=== PATIENT | male | born 1990 | race Caucasian/White ===

== ENCOUNTER 2017-07-06 09:13 | Inpatient (IN) | payer OTHER ==
[2017-07-06 09:55] VITALS: BMI 25.0
--- NOTE | 2017-07-06 12:50 | HP ---
COWS - Scale Resting Pulse: 0= [place] 80 or Below Sweatin= Chills/Flushing Restless Observation: 1= Difficult to Sit Still Pupil Size: 0= Normal to Room Light Bone or Joint Aches: 2= Severe Diffuse Aches Runny Nose/ Eye Tearin= Runny Nose/Eyes GI Upset > 30mins: 3= Vomiting/Diarrhea Tremor Observation: 1= Tremor [place], Not Seen Yawning Observation: 1= 1-2x During Session Anxiety or Irritability: 2=Irritable/Anxious Goose Flesh Skin: 3=Piloerection COWS Score: 16 Admission ROS S - HPI Chief Complaint: "The New Year is coming up and I want to start a new life. I want to do this for myself and for my family." Patient is here to Detox from Heroin. Allergies/Adverse Reactions: Allergies Allergy/AdvReac Type Severity Reaction Status Date / Time No Known Allergies Allergy Verified 07/06/17 10:01 History of Present Illness: Patient is a 27 YO male here to detox from Heroin. This is patient's first detox admission at [facility]. Patient has attended outpatient day programs at [facility] ([place] Longest period of non-drug use: approx. 2 years (2014 - 2016). Exam Limitations: No Limitations - Ebola screening Have you traveled outside of the country in the last 21 days: No (N) Have you had contact with anyone from an Ebola affected area: No Have you been sick,other than usual withdrawal symptoms: No Do you have a fever: No - Review of Systems Constitutional: Chills, Diaphoresis, Fever, Malaise, Night Sweats, Changes in sleep EENT: reports: Blurred Vision, Nose Congestion, Sinus Pressure Respiratory: reports: SOB with Exertion, Productive cough Cardiac: reports: No Symptoms Reported GI: reports: Diarrhea, Nausea, Vomiting, Indigestion ([place].) : reports: No Symptoms Reported Musculoskeletal: reports: Back Pain Integumentary: reports: No Symptoms Reported Neuro: reports: Headache, Numbness (Fingertips of Bilateral Hands.), Tingling ( Fingertips of Bilateral Hands), Tremors Endocrine: reports: No Symptoms Reported Hematology: reports: No Symptoms Reported Psychiatric: reports: Judgement Intact, Mood/Affect Appropiate, Orientated x3, Anxious Other Systems: Reviewed and Negative Patient History - Patient Medical History Hx Anemia: No Hx Asthma: No Hx Chronic Obstructive Pulmonary Disease (COPD): No Hx Cancer: No Hx Cardiac Disorders: No Hx Congestive Heart Failure: No Hx Hypertension: No Hx Hypercholesterolemia: No Hx Pacemaker: No HX Cerebrovascular Accident: No Hx Seizures: No Hx Diabetes: No Hx Gastrointestinal Disorders: No Hx Liver Disease: No Hx Genitourinary Disorders: No Hx Sexually Transmitted Disorders: No Hx Renal Disease (ESRD): No Hx Thyroid Disease: No Hx Human Immunodeficiency Virus (HIV): No (Last Tested: approx. 1 Year ago: NEGATIVE.) Hx Hepatitis C: No (Never Tested.) Hx Depression: No (Only when Detoxing.) Hx Suicide Attempt: No (PATIENT DENIES CURRENT SI / HI.) Hx Bipolar Disorder: No Hx Schizophrenia: No Other Medical History: Dislocated shoulders (Bilateral). - Patient Surgical History Past Surgical History: Yes Hx Neurologic Surgery: No Hx Cataract Extraction: No Hx Cardiac Surgery: No Hx Lung Surgery: No Hx Breast Surgery: No Hx Breast Biopsy: No Hx Abdominal Surgery: No Hx Appendectomy: No Hx Cholecystectomy: No Hx Genitourinary Surgery: No Hx Section: No Hx Orthopedic Surgery: Yes (dislocation, right shoulder in 2009 and 2010) Other Surgical History: Nasal (Repair of Deviated Septum): 2012. Anesthesia Reaction: No - PPD History Previous Implant?: Yes Documented Results: Negative w/o proof Implanted On Prior [facility] Admission?: No PPD to be Administered?: Yes - Reproductive History Patient is a Female of Child Bearing Age (11 -55 yrs old): No (PATIENT IS MALE.) - Smoking Cessation Smoking history: Current every day smoker Have you smoked in the past 12 months: Yes Aproximately how many cigarettes per day: 10 Cigars Per Day: 0 Hx Chewing Tobacco Use: No Initiated information on smoking cessation: Yes 'Breaking Loose' booklet given: 07/06/17 (GIVE ON UNIT.) - Substance & Tx. History Hx Alcohol Use: No Hx Substance Use: Yes Substance Use Type: Heroin, Marijuana Hx Substance Use Treatment: Yes (Previous Day Programs at [facility], [place] - Substances Abused Heroin Route: Inhalation Frequency: Daily Amount used: 2-3 bags Age of first use: 23 Date of Last Use: 07/06/17 MarijuanA Route: Smoking Frequency: 1-2 times per week Amount used: $10 Age of first use: 17 Date of Last Use: 07/05/17 Family Disease History - Family Disease History Family Disease History: Diabetes: Mother (HTN, Hypercholesteremia.), Heart Disease: Mother Admission Physical Exam [facility] - Vital Signs Vital Signs: Vital Signs - 24 hr 07/06/17 09:33 Temperature 97.3 F L Pulse Rate 68 Respiratory 18 Rate Blood Pressure 125/71 - Physical General Appearance: Yes: No Apparent Distress, Nourished, Appropriately Dressed , Tremorous, Anxious HEENTM: Yes: Hearing grossly Normal, Normocephalic, Normal Voice, SHADI, Pharynx Normal Respiratory: Yes: Chest Non-Tender, Lungs Clear, No Respiratory Distress, No Accessory Muscle Use Neck: Yes: No masses,lesions,Nodules, Supple, Trachea in good position Breast: Yes: Breast Exam Deferred Cardiology: Yes: Regular Rhythm, Regular Rate, S1, S2 Abdominal: Yes: Normal Bowel Sounds, Non Tender, Flat, Soft Genitourinary: Yes: Within Normal Limits Back: Yes: Decreased Range of Motion Musculoskeletal: Yes: Gait Steady, Back pain Extremities: Yes: Normal Capillary Refill, Normal Range of Motion, Non-Tender, Tremors Neurological: Yes: Fully Oriented, Alert, Normal Mood/Affect, Normal Response Integumentary: Yes: Normal Color, Dry, Warm Lymphatic: Yes: Within Normal Limits - Diagnostic (1) Opioid dependence with withdrawal Current Visit: Yes Status: Acute (2) Cannabis dependence, uncomplicated Current Visit: Yes Status: Acute (3) Nicotine dependence Current Visit: Yes Status: Chronic Qualifiers: Nicotine product type: cigarettes Substance use status: uncomplicated Qualified Code(s): F17.210 - Nicotine dependence, cigarettes, uncomplicated (4) History of dislocation of shoulder Current Visit: Yes Status: Chronic Comment: Bilateral Shoulders. Cleared for Admission [facility] - Detox or Rehab [facility] Level of Care: Medically Managed Detox Regimen/Protocol: Methadone [facility] Breath Alcohol Content Breath Alcohol Content: 0 Urine Drug Screen - Results Drug Screen Negative: No Urine Drug Screen Results: THC-Marijuana, OPI-Opiates
[2017-07-06] MEDS ORDERED: MAGNESIUM CITRATE 300 ML BOTTLE PO PRN (13:16)
[2017-07-06] MEDS ORDERED: MENTHOL/PHENOL 1 EACH UD MM PRN (13:16)
[2017-07-06] MEDS ORDERED: IBUPROFEN 400 MG TABLET (FP) PO PRN (13:16)
[2017-07-06] MEDS ORDERED: LOPERAMIDE HCL 2 MG CAPSULE PO PRN (13:16)
[2017-07-06] MEDS ORDERED: P-EPHED 60MG/TRIPROLIDI 2.5MG TABLET PO PRN (13:16)
[2017-07-06] MEDS ORDERED: MAGNESIUM HYDROX 2400MG/30ML ORAL SUSPENSION 30 ML CUP PO PRN (13:16)
[2017-07-06] MEDS ORDERED: MAG HYDROX/AL HYDROX/SIMETH 30 ML UNIT-DOSE CUP PO PRN (13:16)
[2017-07-06] MEDS ORDERED: ACETAMINOPHEN 325 MG TABLET (FP) PO PRN (13:16)
[2017-07-06] MEDS ORDERED: METHADONE HCL 10 MG TABLET (FOR DETOX USE ONLY) PO ONE ×2 (13:46→23:00)
[2017-07-06 15:17] LABS: MCH 30.2 pg (25.7-33.7); MCHC 33.6 g/dl (32.0-35.9); PLATELET COUNT 272 K/MM3 (134-434)
[2017-07-06] MEDS: diazePAM 5 MG TABLET PO PRN ×2 (15:18→22:32)
[2017-07-06] MEDS: NICOTINE POLACRILEX 2 MG GUM BUC PRN ×2 (15:19→18:12)
[2017-07-06] MEDS: NICOTINE 21 MG/24 HOURS TOPICAL PATCH TD SCH (15:19)
[2017-07-06 15:20] LABS: ALBUMIN 3.8 g/dl (3.4-5.0); ALK PHOS 132 U/L (45-117); ANION GAP 5 (8-16); BILIRUBIN,TOTAL 0.3 mg/dL (0.2-1.0); CALCIUM 8.6 mg/dL (8.5-10.1); CO2 32 mmol/L (21-32); CREATININE 0.7 mg/dL (0.7-1.3); GLUCOSE,RANDOM 87 mg/dL (74-106); SGOT/AST 16 U/L (15-37); SGPT/ALT 30 U/L (12-78); TOT PROT 7.1 g/dl (6.4-8.2)
[2017-07-06 17:35] LABS: URINE APPEARANCE CLEAR; URINE BILIRUBIN NEGATIVE (NEGATIVE); URINE BLOOD NEGATIVE (NEGATIVE); URINE COLOR LTYELLOW; URINE GLUCOSE (UA) NEGATIVE (NEGATIVE); URINE KETONE NEGATIVE (NEGATIVE); URINE LEUK ESTERASE NEGATIVE (NEGATIVE); URINE NITRITE NEGATIVE (NEGATIVE); URINE PROTEIN NEGATIVE (NEGATIVE); URINE UROBILINOGEN NEGATIVE mg/dL (0.2-1.0)
[2017-07-06 20:46] LABS: URINE LEUK ESTERASE Negative (NEGATIVE)
[2017-07-06] MEDS: THIAMINE HCL 100 MG TABLET (FP) PO SCH (22:32)
--- NOTE | 2017-07-07 09:12 | PN ---
[facility]HS COWS - Scale Resting Pulse: 1= [place] 81-100 Sweatin=Flushed/Facial Moisture Restless Observation: 1= Difficult to Sit Still Pupil Size: 1= Pupils >than Normal Bone or Joint Aches: 2= Severe Diffuse Aches Runny Nose/ Eye Tearin= Runny Nose/Eyes GI Upset > 30mins: 2= Nausea/Diarrhea Tremor Observation of Outstretched Hands: 2= Slight Tremor Visible Yawning Observation: 1= 1-2x During Session Anxiety or Irritability: 2=Irritable/Anxious Goose Flesh Skin: 3=Piloerection COWS Score: 19 BHS Progress Note (SOAP) Subjective: nausea, sweats, interrupted sleep, anxiety, tremros body aches, rhinorrhea, unable to sit still, thristy, depression, anxiety, insomnia Objective: 07/07/17 09:12 Vital Signs - 24 hr 07/06/17 07/06/17 07/06/17 09:33 15:06 17:26 Temperature 97.3 F L 98.2 F 98.1 F Pulse Rate 68 71 66 Respiratory 18 18 18 Rate Blood Pressure 125/71 122/66 135/88 07/06/17 07/07/17 07/07/17 22:43 00:30 03:30 Temperature 98.1 F Pulse Rate 57 L Respiratory 18 18 18 Rate Blood Pressure 136/91 07/07/17 05:42 Temperature 97.2 F L Pulse Rate 59 L Respiratory 16 Rate Blood Pressure 135/75 07/07/17 09:13 Laboratory Tests 07/06/17 07/06/17 07/06/17 13:15 13:15 13:15 WBC 8.0 RBC 4.79 Hgb 14.5 Hct 43.1 MCV 90.0 MCH 30.2 MCHC 33.6 RDW 13.0 Plt Count 272 MPV 8.0 Sodium 141 Potassium 4.5 Chloride 104 Carbon Dioxide 32 Anion Gap 5 L BUN 21 H Creatinine 0.7 Creat Clearance w eGFR > 60 Random Glucose 87 Calcium 8.6 Total Bilirubin 0.3 AST 16 ALT 30 Alkaline Phosphatase 132 H Total Protein 7.1 Albumin 3.8 Urine Color Urine Appearance Urine pH Ur Specific [place] Urine Protein Urine Glucose (UA) Urine Ketones Urine Blood Urine Nitrite Urine Bilirubin Urine Urobilinogen Ur Leukocyte Esterase RPR Titer Nonreactive Hepatitis C Antibody 07/06/17 07/06/17 13:15 15:40 WBC RBC Hgb Hct MCV MCH MCHC RDW Plt Count MPV Sodium Potassium Chloride Carbon Dioxide Anion Gap BUN Creatinine Creat Clearance w eGFR Random Glucose Calcium Total Bilirubin AST ALT Alkaline Phosphatase Total Protein Albumin Urine Color Ltyellow Urine Appearance Clear Urine pH 7.0 Ur Specific [place] 1.017 Urine Protein Negative Urine Glucose (UA) Negative Urine Ketones Negative Urine Blood Negative Urine Nitrite Negative Urine Bilirubin Negative Urine Urobilinogen Negative Ur Leukocyte Esterase Negative RPR Titer Hepatitis C Antibody 0.2 dehydration Assessment: 07/07/17 09:14 withdrawal sx, symptomatic relief of withdrawal ordered for patietn, fluids, encourage ambulation
[2017-07-07 09:20] LABS: HIV 1 & 2 AB NEGATIVE; HIV 1 AGp24 NEGATIVE
[2017-07-07] MEDS ORDERED: METHADONE HCL 10 MG TABLET (FOR DETOX USE ONLY) PO ONE (10:00)
[2017-07-07] MEDS: diazePAM 5 MG TABLET PO PRN ×3 (10:30→18:34)
[2017-07-07] MEDS: PRENATAL VITAMINS W/ FOLIC ACID TABLET (FP) PO SCH (10:30)
[2017-07-07] MEDS: cloNIDine HCL 0.1 MG TABLET PO SCH ×2 (10:32→22:28)
[2017-07-07] MEDS: CYCLOBENZAPRINE HCL 5 MG TABLET PO SCH (10:32)
[2017-07-07] MEDS: NAPROXEN 500 MG TABLET (FP) PO SCH ×2 (10:32→22:31)
[2017-07-07] MEDS: PANTOPRAZOLE 40 MG TABLET (FP) PO SCH (10:32)
[2017-07-07] MEDS: NICOTINE 21 MG/24 HOURS TOPICAL PATCH TD SCH (11:03)
[2017-07-07] MEDS: NICOTINE POLACRILEX 2 MG GUM BUC PRN ×3 (12:40→19:35)
--- NOTE | 2017-07-07 13:00 | EKG ---
Test Reason : Blood Pressure : / mmHG Vent. Rate : 060 BPM Atrial Rate : 060 BPM P-R Int : 182 ms QRS Dur : 100 ms QT Int : 378 ms P-R-T Axes : 029 031 021 degrees QTc Int : 378 ms NORMAL SINUS RHYTHM NORMAL ECG NO PREVIOUS ECGS AVAILABLE Confirmed by NAHOMI ALCANTARA MD ([id number]) on 07/07/2017 1:00:27 PM Referred By: ANDREA LUNA Confirmed By:NAHOMI ALCANTARA MD
[2017-07-07] MEDS: GABAPENTIN 100 MG CAPSULE (FP) PO SCH ×2 (14:33→22:28)
[2017-07-07] MEDS: THIAMINE HCL 100 MG TABLET (FP) PO SCH (22:28)
[2017-07-07] MEDS: ZOLPIDEM TARTRATE 10 MG TABLET (PARK CARE ONLY) PO PRN (22:31)
[2017-07-08] MEDS: GABAPENTIN 100 MG CAPSULE (FP) PO SCH ×3 (05:49→22:38)
[2017-07-08] MEDS ORDERED: METHADONE HCL 5 MG TABLET (FOR DETOX USE ONLY) PO ONE (10:00)
[2017-07-08] MEDS: NICOTINE 21 MG/24 HOURS TOPICAL PATCH TD SCH (10:43)
[2017-07-08] MEDS: PRENATAL VITAMINS W/ FOLIC ACID TABLET (FP) PO SCH (10:44)
[2017-07-08] MEDS: NAPROXEN 500 MG TABLET (FP) PO SCH ×2 (10:44→22:38)
[2017-07-08] MEDS: CYCLOBENZAPRINE HCL 5 MG TABLET PO SCH (10:44)
[2017-07-08] MEDS: cloNIDine HCL 0.1 MG TABLET PO SCH ×2 (10:44→22:38)
[2017-07-08] MEDS: PANTOPRAZOLE 40 MG TABLET (FP) PO SCH (10:44)
[2017-07-08] MEDS: diazePAM 5 MG TABLET PO PRN ×3 (10:46→19:15)
[2017-07-08] MEDS: NICOTINE POLACRILEX 2 MG GUM BUC PRN ×4 (10:49→22:40)
[2017-07-08] MEDS: guaiFENesin/D-METHORPHAN HB 10 ML UNIT-DOSE CUPS PO PRN ×2 (11:15→17:48)
--- NOTE | 2017-07-08 14:34 | PN ---
[facility]HS COWS - Scale Resting Pulse: 0= [place] 80 or Below Sweatin= Chills/Flushing Restless Observation: 3= Extraneous Movement Pupil Size: 0= Normal to Room Light Bone or Joint Aches: 2= Severe Diffuse Aches Runny Nose/ Eye Tearin= Runny Nose/Eyes GI Upset > 30mins: 1= Stomach Cramp Tremor Observation of Outstretched Hands: 2= Slight Tremor Visible Yawning Observation: 1= 1-2x During Session Anxiety or Irritability: 2=Irritable/Anxious Goose Flesh Skin: 0=Smooth Skin COWS Score: 14 S Progress Note (SOAP) Subjective: Sweating, teary eyes, anxious, interrupted sleep. Patient requesting to be discharged on Wednesday instead of Wednesday. He agreed to have his detox protocol adjusted. Objective: 07/08/17 14:33 Last Vital Signs Temp Pulse Resp BP Pulse Ox 95.9 F L 66 20 121/66 07/08/17 13:49 07/08/17 13:49 07/08/17 13:49 07/08/17 13:49 Laboratory Tests 07/06/17 07/06/17 07/06/17 13:15 13:15 13:15 WBC 8.0 RBC 4.79 Hgb 14.5 Hct 43.1 MCV 90.0 MCH 30.2 MCHC 33.6 RDW 13.0 Plt Count 272 MPV 8.0 Sodium 141 Potassium 4.5 Chloride 104 Carbon Dioxide 32 Anion Gap 5 L BUN 21 H Creatinine 0.7 Creat Clearance w eGFR > 60 Random Glucose 87 Calcium 8.6 Total Bilirubin 0.3 AST 16 ALT 30 Alkaline Phosphatase 132 H Total Protein 7.1 Albumin 3.8 Urine Color Urine Appearance Urine pH Ur Specific [place] Urine Protein Urine Glucose (UA) Urine Ketones Urine Blood Urine Nitrite Urine Bilirubin Urine Urobilinogen Ur Leukocyte Esterase RPR Titer Hepatitis C Antibody HIV 1&2 Antibody Screen Negative HIV P24 Antigen Negative 07/06/17 07/06/17 07/06/17 13:15 13:15 15:40 WBC RBC Hgb Hct MCV MCH MCHC RDW Plt Count MPV Sodium Potassium Chloride Carbon Dioxide Anion Gap BUN Creatinine Creat Clearance w eGFR Random Glucose Calcium Total Bilirubin AST ALT Alkaline Phosphatase Total Protein Albumin Urine Color Ltyellow Urine Appearance Clear Urine pH 7.0 Ur Specific [place] 1.017 Urine Protein Negative Urine Glucose (UA) Negative Urine Ketones Negative Urine Blood Negative Urine Nitrite Negative Urine Bilirubin Negative Urine Urobilinogen Negative Ur Leukocyte Esterase Negative RPR Titer Nonreactive Hepatitis C Antibody 0.2 HIV 1&2 Antibody Screen HIV P24 Antigen Labs noted: BUN 21 Assessment: 07/08/17 14:34 Withdrawal symptoms Noted with azotemia Plan: Continue detox Methadone detox protocol adjusted to accommodate patient's discharge on Wednesday Azotemia: encouraged to drink lots of water, (water pitcher ordered).
[2017-07-08] MEDS: ZOLPIDEM TARTRATE 10 MG TABLET (PARK CARE ONLY) PO PRN (22:38)
[2017-07-08] MEDS: THIAMINE HCL 100 MG TABLET (FP) PO SCH (22:38)
[2017-07-09] MEDS: GABAPENTIN 100 MG CAPSULE (FP) PO SCH ×3 (05:28→22:31)
[2017-07-09] MEDS: diazePAM 5 MG TABLET PO PRN ×2 (05:28→10:18)
[2017-07-09] MEDS: NICOTINE POLACRILEX 2 MG GUM BUC PRN ×5 (05:29→21:00)
[2017-07-09] MEDS: guaiFENesin/D-METHORPHAN HB 10 ML UNIT-DOSE CUPS PO PRN (05:31)
[2017-07-09] MEDS ORDERED: METHADONE HCL 10 MG TABLET (FOR DETOX USE ONLY) PO ONE (10:00)
[2017-07-09] MEDS ORDERED: METHADONE HCL 5 MG TABLET (FOR DETOX USE ONLY) PO ONE (10:00)
[2017-07-09] MEDS: CYCLOBENZAPRINE HCL 5 MG TABLET PO SCH (10:14)
[2017-07-09] MEDS: PRENATAL VITAMINS W/ FOLIC ACID TABLET (FP) PO SCH (10:14)
[2017-07-09] MEDS: NAPROXEN 500 MG TABLET (FP) PO SCH ×2 (10:14→22:32)
[2017-07-09] MEDS: cloNIDine HCL 0.1 MG TABLET PO SCH ×2 (10:15→22:31)
[2017-07-09] MEDS: PANTOPRAZOLE 40 MG TABLET (FP) PO SCH (10:19)
[2017-07-09] MEDS: NICOTINE 21 MG/24 HOURS TOPICAL PATCH TD SCH (10:56)
--- NOTE | 2017-07-09 14:29 | PN ---
S Progress Note (SOAP) Subjective: Anxious, restless, sweating; patient is scheduled for discharge tomorrow. As per patient, his will pick him up tomorrow morning here at [facility]. Objective: 07/09/17 14:27 Last Vital Signs Temp Pulse Resp BP Pulse Ox 99 F 78 18 133/63 07/09/17 10:00 07/09/17 10:00 07/09/17 10:00 07/09/17 10:00 Laboratory Tests 07/06/17 07/06/17 07/06/17 13:15 13:15 13:15 WBC 8.0 RBC 4.79 Hgb 14.5 Hct 43.1 MCV 90.0 MCH 30.2 MCHC 33.6 RDW 13.0 Plt Count 272 MPV 8.0 Sodium 141 Potassium 4.5 Chloride 104 Carbon Dioxide 32 Anion Gap 5 L BUN 21 H Creatinine 0.7 Creat Clearance w eGFR > 60 Random Glucose 87 Calcium 8.6 Total Bilirubin 0.3 AST 16 ALT 30 Alkaline Phosphatase 132 H Total Protein 7.1 Albumin 3.8 Urine Color Urine Appearance Urine pH Ur Specific [place] Urine Protein Urine Glucose (UA) Urine Ketones Urine Blood Urine Nitrite Urine Bilirubin Urine Urobilinogen Ur Leukocyte Esterase RPR Titer Hepatitis C Antibody HIV 1&2 Antibody Screen Negative HIV P24 Antigen Negative 07/06/17 07/06/17 07/06/17 13:15 13:15 15:40 WBC RBC Hgb Hct MCV MCH MCHC RDW Plt Count MPV Sodium Potassium Chloride Carbon Dioxide Anion Gap BUN Creatinine Creat Clearance w eGFR Random Glucose Calcium Total Bilirubin AST ALT Alkaline Phosphatase Total Protein Albumin Urine Color Ltyellow Urine Appearance Clear Urine pH 7.0 Ur Specific [place] 1.017 Urine Protein Negative Urine Glucose (UA) Negative Urine Ketones Negative Urine Blood Negative Urine Nitrite Negative Urine Bilirubin Negative Urine Urobilinogen Negative Ur Leukocyte Esterase Negative RPR Titer Nonreactive Hepatitis C Antibody 0.2 HIV 1&2 Antibody Screen HIV P24 Antigen Labs noted: bun 21 Assessment: 07/09/17 14:28 Withdrawal symptoms Noted with azotemia Plan: Continue detox Azotemia: encouraged to drink lots of water for hydration
[2017-07-09] MEDS: hydrOXYzine HCL 25 MG TABLET (FP) PO PRN (17:17)
[2017-07-09] MEDS: THIAMINE HCL 100 MG TABLET (FP) PO SCH (22:31)
[2017-07-09] MEDS: ZOLPIDEM TARTRATE 10 MG TABLET (PARK CARE ONLY) PO PRN (22:34)
[2017-07-10] MEDS: GABAPENTIN 100 MG CAPSULE (FP) PO SCH (05:28)
[2017-07-10] MEDS: NICOTINE POLACRILEX 2 MG GUM BUC PRN ×2 (05:29→09:21)
[2017-07-10] MEDS ORDERED: METHADONE HCL 5 MG TABLET (FOR DETOX USE ONLY) PO ONE (06:00)
[2017-07-10] MEDS: hydrOXYzine HCL 25 MG TABLET (FP) PO PRN (08:27)
[2017-07-10] MEDS: cloNIDine HCL 0.1 MG TABLET PO SCH (09:29)
[2017-07-10] MEDS: CYCLOBENZAPRINE HCL 5 MG TABLET PO SCH (09:29)
[2017-07-10] MEDS: PRENATAL VITAMINS W/ FOLIC ACID TABLET (FP) PO SCH (09:29)
[2017-07-10] MEDS: PANTOPRAZOLE 40 MG TABLET (FP) PO SCH (09:30)
[2017-07-10] MEDS: NAPROXEN 500 MG TABLET (FP) PO SCH (09:30)
[2017-07-10] MEDS: NICOTINE 21 MG/24 HOURS TOPICAL PATCH TD SCH (09:30)
[2017-07-10] MEDS ORDERED: METHADONE HCL 10 MG TABLET (FOR DETOX USE ONLY) PO ONE (10:00)
[2017-07-10 10:54] VITALS: BP 129/83; PULSE 72; TEMP 97.3
--- NOTE | 2017-07-10 11:58 | DS ---
[facility] Detox Discharge Summary Admission Date: 07/06/17 Discharge Date: 07/10/17 - History Present History: Cannabis Dependence, Opioid Dependence Pertinent Past History: Dislocation of R shoulder Repair of deviated septum - Physical Exam Results Vital Signs: Vital Signs Temperature 97.3 F L 07/10/17 10:00 Pulse Rate 72 07/10/17 10:00 Respiratory Rate 18 07/10/17 10:00 Blood Pressure 129/83 07/10/17 10:00 O2 Sat by Pulse Oximetry (%) Pertinent Admission Physical Exam Findings: Withdrawal sx Laboratory Last Values WBC 8.0 K/mm3 (4.0-10.0) 07/06/17 13:15 RBC 4.79 M/mm3 (4.00-5.60) 07/06/17 13:15 Hgb 14.5 GM/dL (11.7-16.9) 07/06/17 13:15 Hct 43.1 % (35.4-49) 07/06/17 13:15 MCV 90.0 fl (80-96) 07/06/17 13:15 MCH 30.2 pg (25.7-33.7) 07/06/17 13:15 MCHC 33.6 g/dl (32.0-35.9) 07/06/17 13:15 RDW 13.0 % (11.9-15.9) 07/06/17 13:15 Plt Count 272 K/MM3 (134-434) 07/06/17 13:15 MPV 8.0 fl (7.5-11.1) 07/06/17 13:15 Sodium 141 mmol/L (136-145) 07/06/17 13:15 Potassium 4.5 mmol/L (3.5-5.1) 07/06/17 13:15 Chloride 104 mmol/L (98-107) 07/06/17 13:15 Carbon Dioxide 32 mmol/L (21-32) 07/06/17 13:15 Anion Gap 5 (8-16) L 07/06/17 13:15 BUN 21 mg/dL (7-18) H 07/06/17 13:15 Creatinine 0.7 mg/dL (0.7-1.3) 07/06/17 13:15 Creat Clearance w eGFR > 60 (>60) 07/06/17 13:15 Random Glucose 87 mg/dL (74-106) 07/06/17 13:15 Calcium 8.6 mg/dL (8.5-10.1) 07/06/17 13:15 Total Bilirubin 0.3 mg/dL (0.2-1.0) 07/06/17 13:15 AST 16 U/L (15-37) 07/06/17 13:15 ALT 30 U/L (12-78) 07/06/17 13:15 Alkaline Phosphatase 132 U/L (45-117) H 07/06/17 13:15 Total Protein 7.1 g/dl (6.4-8.2) 07/06/17 13:15 Albumin 3.8 g/dl (3.4-5.0) 07/06/17 13:15 Urine Color Ltyellow 07/06/17 15:40 Urine Appearance Clear 07/06/17 15:40 Urine pH 7.0 (5.0-8.0) 07/06/17 15:40 Ur Specific [place] 1.017 (1.001-1.035) 07/06/17 15:40 Urine Protein Negative (NEGATIVE) 07/06/17 15:40 Urine Glucose (UA) Negative (NEGATIVE) 07/06/17 15:40 Urine Ketones Negative (NEGATIVE) 07/06/17 15:40 Urine Blood Negative (NEGATIVE) 07/06/17 15:40 Urine Nitrite Negative (NEGATIVE) 07/06/17 15:40 Urine Bilirubin Negative (NEGATIVE) 07/06/17 15:40 Urine Urobilinogen Negative mg/dL (0.2-1.0) 07/06/17 15:40 Ur Leukocyte Esterase Negative (NEGATIVE) 07/06/17 15:40 RPR Titer Nonreactive (NONREACTIVE) 07/06/17 13:15 Hepatitis C Antibody 0.2 s/co ratio (0.0-0.9) 07/06/17 13:15 HIV 1&2 Antibody Screen Negative 07/06/17 13:15 HIV P24 Antigen Negative 07/06/17 13:15 Labs noted - Treatment Hospital Course: Detox Protocol Followed, Detoxed Safely, Responded well, Discharged Condition Good Patient has Accepted a Rehab Referral to: [facility] - Medication Discharge Medications: Ambulatory Orders Hydroxyzine HCl [Atarax -] 25 mg PO Q6H PRN #30 tablet 07/09/17 - Diagnosis (1) Opioid dependence with withdrawal Status: Acute (2) Cannabis dependence, uncomplicated Status: Acute (3) History of dislocation of shoulder Status: Chronic - AMA Did Patient Leave Against Medical Advice: No
[2017-07-11] MEDS ORDERED: METHADONE HCL 5 MG TABLET (FOR DETOX USE ONLY) PO ONE (06:00)
== END 2017-07-10 09:30 | disposition home or self-care (01) | DRG 773 ==
LOC: YASAS 09:13 → Y6N 13:22
PROVIDERS: ADMIT Internal Medicine; ATTEND Internal Medicine
PROC: HZ2ZZZZ Detoxification Services for Substance Abuse Treatment (ICD-10-PCS; principal; 2017-07-06)
DX: F11.23 Opioid dependence with withdrawal (principal); F12.20 Cannabis dependence, uncomplicated; F17.210 Nicotine dependence, cigarettes, uncomplicated; F32.9 Major depressive disorder, single episode, unspecified; F41.9 Anxiety disorder, unspecified; G47.00 Insomnia, unspecified; R79.89 Other specified abnormal findings of blood chemistry; E86.0 Dehydration
CPT/HCPCS: 36415; 80053; 81003; 85027; 86593; 86803; 87389; 93005; 93010

== ENCOUNTER 2017-08-05 09:01 | Inpatient (IN) | payer OTHER ==
[2017-08-05 09:56] VITALS: BMI 25.8
--- NOTE | 2017-08-05 14:48 | HP ---
COWS - Scale Resting Pulse: 0= [place] 80 or Below Sweatin= Chills/Flushing Restless Observation: 3= Extraneous Movement Pupil Size: 0= Normal to Room Light Bone or Joint Aches: 4=Acute Joint/Muscle Pain Runny Nose/ Eye Tearin= Runny Nose/Eyes GI Upset > 30mins: 0= None Tremor Observation: 1= Tremor [place], Not Seen Yawning Observation: 1= 1-2x During Session Anxiety or Irritability: 2=Irritable/Anxious Goose Flesh Skin: 0=Smooth Skin COWS Score: 14 Admission ROS S - HPI Chief Complaint: WITHDRAWAL SX FROM HEROIN Allergies/Adverse Reactions: Allergies Allergy/AdvReac Type Severity Reaction Status Date / Time No Known Allergies Allergy Verified 08/05/17 12:04 History of Present Illness: 27 Y/O H/MALE WITH A HX OF HEROIN AND MARIJUANA DEPENDENCE SEEKING DETOX TX. PT' S SECOND ADMISSION HERE. Exam Limitations: No Limitations - Ebola screening Have you traveled outside of the country in the last 21 days: No Have you had contact with anyone from an Ebola affected area: No Have you been sick,other than usual withdrawal symptoms: No - Review of Systems Constitutional: Chills, Loss of Appetite, Night Sweats, Changes in sleep EENT: reports: Blurred Vision, Tearing, Nose Congestion Respiratory: reports: No Symptoms reported Cardiac: reports: No Symptoms Reported GI: reports: Constipated (OIC), Diarrhea, Nausea, Poor Appetite, Vomiting, Abdominal cramping : reports: Dysuria (DUE TO HEROIN USE.) Musculoskeletal: reports: Muscle Pain Integumentary: reports: Rash (RASH ON RIGHT NECK TREATED BUT LEFT A PIGMENT ON NECK) Neuro: reports: Headache, Numbness, Tingling, Tremors, Unsteady Gait, Dizziness Endocrine: reports: No Symptoms Reported Hematology: reports: No Symptoms Reported Psychiatric: reports: Orientated x3, Anxious, Depressed Other Systems: Reviewed and Negative Patient History - Patient Medical History Hx Anemia: No Hx Asthma: No Hx Chronic Obstructive Pulmonary Disease (COPD): No Hx Cancer: No Hx Cardiac Disorders: No Hx Congestive Heart Failure: No Hx Hypertension: No Hx Hypercholesterolemia: No Hx Pacemaker: No HX Cerebrovascular Accident: No Hx Seizures: No Hx Diabetes: No Hx Gastrointestinal Disorders: No Hx Liver Disease: No Hx Genitourinary Disorders: No Hx Sexually Transmitted Disorders: No (DENIES) Hx Renal Disease (ESRD): No Hx Thyroid Disease: No Hx Human Immunodeficiency Virus (HIV): No (Last Tested: approx. 1 Year ago: NEGATIVE HX) Hx Hepatitis C: No (Never Tested.) Hx Depression: Yes Hx Suicide Attempt: Yes (Pt tried to cut himself in 2011;DENIES CURRENT S/H/I) Hx Bipolar Disorder: No Hx Schizophrenia: No - Patient Surgical History Past Surgical History: Yes Hx Neurologic Surgery: No Hx Cataract Extraction: No Hx Cardiac Surgery: No Hx Lung Surgery: No Hx Breast Surgery: No Hx Breast Biopsy: No Hx Abdominal Surgery: No Hx Appendectomy: No Hx Cholecystectomy: No Hx Genitourinary Surgery: No Hx Orthopedic Surgery: Yes (dislocation, right shoulder in 2009 and 2010) Other Surgical History: Nasal (Repair of Deviated Septum): 2012. Anesthesia Reaction: No - PPD History Previous Implant?: Yes Documented Results: Negative w/proof Implanted On Prior [facility] Admission?: Yes Date: 07/08/17 Results: 3 mm PPD to be Administered?: No - Reproductive History Patient is a Female of Child Bearing Age (11 -55 yrs old): No (MALE) - Smoking Cessation Smoking history: Current every day smoker Have you smoked in the past 12 months: Yes Aproximately how many cigarettes per day: 10 Cigars Per Day: 0 Hx Chewing Tobacco Use: No Initiated information on smoking cessation: Yes 'Breaking Loose' booklet given: 08/05/17 - Substance & Tx. History Hx Alcohol Use: No Hx Substance Use: Yes (HEROIN/MARIJUANA) Substance Use Type: Heroin, Marijuana Hx Substance Use Treatment: Yes (LAST [facility] AT [facility]) - Substances Abused Heroin Route: Inhalation Frequency: Daily Amount used: 5 bags Age of first use: 23 Date of Last Use: 08/05/17 Marijuana/Hashish Route: Smoking Frequency: Daily Amount used: 1 gram Age of first use: 17 Date of Last Use: 08/04/17 Family Disease History - Family Disease History Family Disease History: Diabetes: Mother (HTN, Hypercholesteremia.), Heart Disease: Mother Admission Physical Exam [facility] - Vital Signs Vital Signs: Vital Signs - 24 hr 08/05/17 09:54 Temperature 98 F Pulse Rate 70 Respiratory 20 Rate Blood Pressure 151/77 - Physical General Appearance: Yes: Moderate Distress, Irritable, Anxious HEENTM: Yes: EOMI, Normocephalic, SHADI, Pharynx Normal Respiratory: Yes: Chest Non-Tender, Lungs Clear, Normal Breath Sounds, No Respiratory Distress Neck: Yes: No masses,lesions,Nodules, Supple, Trachea in good position Breast: Yes: Breast Exam Deferred Cardiology: Yes: Regular Rhythm, Regular Rate, S1, S2 Abdominal: Yes: Normal Bowel Sounds, Non Tender, Flat, Soft Genitourinary: Yes: Other (N/C) Back: Yes: Within Normal Limits Musculoskeletal: Yes: full range of Motion, Gait Steady Extremities: Yes: Normal Range of Motion, Non-Tender Neurological: Yes: bindery helper II-XII NML intact, Fully Oriented, Alert, Motor Strength 5/5 Integumentary: Yes: Dry, Warm Lymphatic: Yes: Within Normal Limits - Diagnostic (1) Cannabis dependence, uncomplicated Current Visit: Yes Status: Acute (2) Opioid dependence with withdrawal Current Visit: Yes Status: Acute (3) History of dislocation of shoulder Current Visit: Yes Status: Chronic Comment: Bilateral Shoulders. (4) Nicotine dependence Current Visit: Yes Status: Acute Qualifiers: Nicotine product type: cigarettes Substance use status: uncomplicated Qualified Code(s): F17.210 - Nicotine dependence, cigarettes, uncomplicated Cleared for Admission [facility] - Detox or Rehab [facility] Level of Care: Medically Managed Detox Regimen/Protocol: Methadone [facility] Breath Alcohol Content Breath Alcohol Content: 0 Urine Drug Screen - Results Drug Screen Negative: No Urine Drug Screen Results: THC-Marijuana, JAIRON-Cocaine, OPI-Opiates, OXY- Oxycodone
[2017-08-05] MEDS ORDERED: MAG HYDROX/AL HYDROX/SIMETH 30 ML UNIT-DOSE CUP PO PRN (15:23)
[2017-08-05] MEDS ORDERED: P-EPHED 60MG/TRIPROLIDI 2.5MG TABLET PO PRN (15:23)
[2017-08-05] MEDS ORDERED: ACETAMINOPHEN 325 MG TABLET (FP) PO PRN (15:23)
[2017-08-05] MEDS ORDERED: IBUPROFEN 400 MG TABLET (FP) PO PRN (15:23)
[2017-08-05] MEDS ORDERED: LOPERAMIDE HCL 2 MG CAPSULE PO PRN (15:23)
[2017-08-05] MEDS ORDERED: MENTHOL/PHENOL 1 EACH UD MM PRN (15:23)
[2017-08-05] MEDS ORDERED: MAGNESIUM CITRATE 300 ML BOTTLE PO PRN (15:23)
[2017-08-05] MEDS ORDERED: MAGNESIUM HYDROX 2400MG/30ML ORAL SUSPENSION 30 ML CUP PO PRN (15:23)
[2017-08-05] MEDS ORDERED: METHADONE HCL 10 MG TABLET (FOR DETOX USE ONLY) PO ONE ×2 (15:36→23:00)
[2017-08-05 16:53] LABS: HEMATOCRIT 43.7 % (35.4-49); HEMOGLOBIN 14.9 GM/dL (11.7-16.9); MCH 30.5 pg (25.7-33.7); MCHC 34.2 g/dl (32.0-35.9); MEAN CELL VOLUME 89.3 fl (80-96); MEAN PLT VOLUME 7.9 fl (7.5-11.1); PLATELET COUNT 241 K/MM3 (134-434); RDW 13.2 % (11.9-15.9); WHITE BLOOD COUNT 5.6 K/mm3 (4.0-10.0)
[2017-08-05 17:06] LABS: ALBUMIN 4.3 g/dl (3.4-5.0); ANION GAP 7 (8-16); BLOOD UREA NITROGEN 18 mg/dL (7-18); CALCIUM 8.9 mg/dL (8.5-10.1); CHLORIDE 103 mmol/L (98-107); CO2 30 mmol/L (21-32); CREATININE 0.9 mg/dL (0.7-1.3); GLUCOSE,RANDOM 93 mg/dL (74-106); POTASSIUM 4.7 mmol/L (3.5-5.1); SGOT/AST 19 U/L (15-37); SGPT/ALT 31 U/L (12-78); SODIUM 140 mmol/L (136-145)
[2017-08-05 17:08] LABS: ALK PHOS 110 U/L (45-117); BILIRUBIN,TOTAL 0.5 mg/dL (0.2-1.0); TOT PROT 7.6 g/dl (6.4-8.2)
[2017-08-05] MEDS: diazePAM 5 MG TABLET PO PRN ×2 (17:25→22:05)
[2017-08-05] MEDS: NICOTINE POLACRILEX 2 MG GUM BUC PRN ×3 (17:28→22:07)
[2017-08-05] MEDS: NICOTINE 14 MG/24 HOURS TOPICAL PATCH TD SCH (17:28)
--- NOTE | 2017-08-05 17:32 | CONSULT ---
[facility] Psychiatric Consult - Data Date of interview: 08/05/17 Admission source: [facility] Identifying data: Pt. is a 27 year old male, father of one, and currently employed. This is one of multiple admissions for patient. Pt. admitted to for heroin and cannabis dependence. Substance Abuse History: Following information confirmed with Mr. Rooney: Smoking Cessation. Smoking history: Current every day smoker. Have you smoked in the past 12 months: Yes. Aproximately how many cigarettes per day: 10. Cigars Per Day: 0. Hx Chewing Tobacco Use: No. Initiated information on smoking cessation: Yes. 'Breaking Loose' booklet given: 08/05/17. - Substance & Tx. History. Hx Alcohol Use: No. Hx Substance Use: Yes (HEROIN/MARIJUANA). Substance Use Type: Heroin, Marijuana. Hx Substance Use Treatment: Yes (LAST TX AT [facility]). - Substances Abused. Heroin. Route: Inhalation. Frequency: Daily. Amount used: 5 bags. Age of first use: 23. Date of Last Use: . Marijuana/Hashish. Route: Smoking. Frequency: Daily. Amount used: 1 gram. Age of first use: 17. Date of Last Use: 08/04/17 Medical History: Denies. Psychiatric History: Pt. denies psychiatric hospitalizations, OPC, and suicide attempts. Pt. reports one episode of self injurious behavior at 19 years of age via cutting of arms after arguing with parents. Pt. denies seeking medication attention, stated to typewriter tester the cuts were superficial. Pt. denies suicidal and homicidal ideation. Physical/Sexual Abuse/Trauma History: Denies. Mental Status Exam - Mental Status Exam Alert and Oriented to: Time, Place, Person Cognitive Function: Good Patient Appearance: Well Groomed Mood: Hopeful Affect: Appropriate Patient Behavior: Appropriate, Cooperative Speech Pattern: Clear, Appropriate Voice Loudness: Normal Thought Process: Goal Oriented Thought Disorder: Not Present Hallucinations: Denies Suicidal Ideation: Denies Homicidal Ideation: Denies Insight/Judgement: Poor Sleep: Poorly Appetite: Fair Muscle strength/Tone: Normal Gait/Station: Normal Psychiatric Findings - Problem List (Cougar 1, 2,3) (1) Cannabis dependence, uncomplicated Current Visit: Yes Status: Acute (2) Nicotine dependence Current Visit: Yes Status: Chronic Qualifiers: Nicotine product type: cigarettes Substance use status: uncomplicated Qualified Code(s): F17.210 - Nicotine dependence, cigarettes, uncomplicated (3) Opioid dependence with withdrawal Current Visit: Yes Status: Acute (4) Insomnia Current Visit: Yes Status: Acute - Initial Treatment Plan Initial Treatment Plan: Psychoeducation provided. Detoxification in progress. Ambien 10mg qhs ordered. Benefits and side effects (sleep walking) discussed. Verbal consent given. Will continue to monitor patient.
[2017-08-05] MEDS: hydrOXYzine PAMOATE 50 MG CAPSULE (FP) PO PRN (18:22)
[2017-08-05] MEDS: CYCLOBENZAPRINE HCL 10 MG TABLET (FP) PO SCH (22:04)
[2017-08-05] MEDS: cloNIDine HCL 0.1 MG TABLET PO SCH (22:04)
[2017-08-05] MEDS: THIAMINE HCL 100 MG TABLET (FP) PO SCH (22:04)
[2017-08-05 23:07] LABS: URINE APPEARANCE CLEAR; URINE BILIRUBIN NEGATIVE (NEGATIVE); URINE BLOOD NEGATIVE (NEGATIVE); URINE COLOR LTYELLOW; URINE GLUCOSE (UA) NEGATIVE (NEGATIVE); URINE KETONE NEGATIVE (NEGATIVE); URINE LEUK ESTERASE NEGATIVE (NEGATIVE); URINE NITRITE NEGATIVE (NEGATIVE); URINE PROTEIN NEGATIVE (NEGATIVE); URINE UROBILINOGEN NEGATIVE mg/dL (0.2-1.0)
[2017-08-06] MEDS: CYCLOBENZAPRINE HCL 10 MG TABLET (FP) PO SCH ×3 (05:17→22:08)
[2017-08-06] MEDS: diazePAM 5 MG TABLET PO PRN ×4 (05:17→18:45)
[2017-08-06] MEDS: NICOTINE POLACRILEX 2 MG GUM BUC PRN ×6 (05:19→22:12)
[2017-08-06] MEDS: hydrOXYzine PAMOATE 50 MG CAPSULE (FP) PO PRN ×3 (09:06→17:43)
--- NOTE | 2017-08-06 09:53 | EKG ---
Test Reason : Blood Pressure : / mmHG Vent. Rate : 054 BPM Atrial Rate : 054 BPM P-R Int : 184 ms QRS Dur : 098 ms QT Int : 406 ms P-R-T Axes : 037 040 027 degrees QTc Int : 385 ms SINUS BRADYCARDIA OTHERWISE NORMAL ECG WHEN COMPARED WITH ECG OF 06-JUL-2017 15:03, NO SIGNIFICANT CHANGE WAS FOUND Confirmed by JOSE CARLOS WARREN MD ([id number]) on 08/06/2017 9:53:34 AM Referred By: Confirmed By:JOSE CARLOS WARREN MD
[2017-08-06] MEDS ORDERED: METHADONE HCL 10 MG TABLET (FOR DETOX USE ONLY) PO ONE (10:00)
[2017-08-06] MEDS: cloNIDine HCL 0.1 MG TABLET PO SCH ×2 (10:16→22:09)
[2017-08-06] MEDS: PRENATAL VITAMINS W/ FOLIC ACID TABLET (FP) PO SCH (10:16)
[2017-08-06] MEDS: NICOTINE 14 MG/24 HOURS TOPICAL PATCH TD SCH (10:16)
--- NOTE | 2017-08-06 10:34 | PN ---
BHS COWS - Scale Resting Pulse: 0= SD 80 or Below Sweatin= Chills/Flushing Restless Observation: 3= Extraneous Movement Pupil Size: 2= Moderately Dilated Bone or Joint Aches: 2= Severe Diffuse Aches Runny Nose/ Eye Tearin= Nasal Congestion GI Upset > 30mins: 0= None Tremor Observation of Outstretched Hands: 2= Slight Tremor Visible Yawning Observation: 1= 1-2x During Session Anxiety or Irritability: 1=Feels Anxious/Irritable Goose Flesh Skin: 0=Smooth Skin COWS Score: 13 BHS Progress Note (SOAP) Subjective: ANXIETY,SWEATS,FATIGUE. Objective: 08/06/17 10:33 Vital Signs Temperature 96.6 F L 08/06/17 09:47 Pulse Rate 73 08/06/17 09:47 Respiratory Rate 18 08/06/17 09:47 Blood Pressure 112/73 08/06/17 09:47 O2 Sat by Pulse Oximetry (%) Laboratory Last Values WBC 5.6 K/mm3 (4.0-10.0) 08/05/17 15:00 RBC 4.90 M/mm3 (4.00-5.60) 08/05/17 15:00 Hgb 14.9 GM/dL (11.7-16.9) 08/05/17 15:00 Hct 43.7 % (35.4-49) 08/05/17 15:00 MCV 89.3 fl (80-96) 08/05/17 15:00 MCH 30.5 pg (25.7-33.7) 08/05/17 15:00 MCHC 34.2 g/dl (32.0-35.9) 08/05/17 15:00 RDW 13.2 % (11.9-15.9) 08/05/17 15:00 Plt Count 241 K/MM3 (134-434) 08/05/17 15:00 MPV 7.9 fl (7.5-11.1) 08/05/17 15:00 Sodium 140 mmol/L (136-145) 08/05/17 15:00 Potassium 4.7 mmol/L (3.5-5.1) 08/05/17 15:00 Chloride 103 mmol/L (98-107) 08/05/17 15:00 Carbon Dioxide 30 mmol/L (21-32) 08/05/17 15:00 Anion Gap 7 (8-16) L 08/05/17 15:00 BUN 18 mg/dL (7-18) 08/05/17 15:00 Creatinine 0.9 mg/dL (0.7-1.3) D 08/05/17 15:00 Creat Clearance w eGFR > 60 (>60) 08/05/17 15:00 Random Glucose 93 mg/dL (74-106) 08/05/17 15:00 Calcium 8.9 mg/dL (8.5-10.1) 08/05/17 15:00 Total Bilirubin 0.5 mg/dL (0.2-1.0) D 08/05/17 15:00 AST 19 U/L (15-37) 08/05/17 15:00 ALT 31 U/L (12-78) 08/05/17 15:00 Alkaline Phosphatase 110 U/L (45-117) 08/05/17 15:00 Total Protein 7.6 g/dl (6.4-8.2) 08/05/17 15:00 Albumin 4.3 g/dl (3.4-5.0) 08/05/17 15:00 Urine Color Ltyellow 08/05/17 16:19 Urine Appearance Clear 08/05/17 16:19 Urine pH 6.0 (5.0-8.0) 08/05/17 16:19 Ur Specific [place] 1.016 (1.001-1.035) 08/05/17 16:19 Urine Protein Negative (NEGATIVE) 08/05/17 16:19 Urine Glucose (UA) Negative (NEGATIVE) 08/05/17 16:19 Urine Ketones Negative (NEGATIVE) 08/05/17 16:19 Urine Blood Negative (NEGATIVE) 08/05/17 16:19 Urine Nitrite Negative (NEGATIVE) 08/05/17 16:19 Urine Bilirubin Negative (NEGATIVE) 08/05/17 16:19 Urine Urobilinogen Negative mg/dL (0.2-1.0) 08/05/17 16:19 Ur Leukocyte Esterase Negative (NEGATIVE) 08/05/17 16:19 RPR Titer Nonreactive (NONREACTIVE) 08/05/17 15:00 Assessment: 08/06/17 10:34 WITHDRAWAL SX Plan: CONTINUE DETOX
[2017-08-06] MEDS: ZOLPIDEM TARTRATE 10 MG TABLET (PARK CARE ONLY) PO PRN (22:08)
[2017-08-06] MEDS: THIAMINE HCL 100 MG TABLET (FP) PO SCH (22:08)
[2017-08-07] MEDS: diazePAM 5 MG TABLET PO PRN ×5 (05:18→22:19)
[2017-08-07] MEDS: CYCLOBENZAPRINE HCL 10 MG TABLET (FP) PO SCH ×3 (05:18→22:19)
[2017-08-07] MEDS: hydrOXYzine PAMOATE 50 MG CAPSULE (FP) PO PRN ×4 (08:57→22:19)
[2017-08-07] MEDS: NICOTINE POLACRILEX 2 MG GUM BUC PRN ×7 (08:57→22:21)
[2017-08-07] MEDS ORDERED: METHADONE HCL 5 MG TABLET (FOR DETOX USE ONLY) PO ONE (10:00)
[2017-08-07] MEDS: cloNIDine HCL 0.1 MG TABLET PO SCH ×2 (10:24→22:18)
[2017-08-07] MEDS: NICOTINE 14 MG/24 HOURS TOPICAL PATCH TD SCH (10:24)
[2017-08-07] MEDS: PRENATAL VITAMINS W/ FOLIC ACID TABLET (FP) PO SCH (10:24)
--- NOTE | 2017-08-07 14:12 | PN ---
[facility] Progress Note Note: Psychiatry Attending's note (follow-up) : Reconsult for anxiety. Met with patient.Chart reviewed. Already seen by imagery intelligence Madhav. Observed as comfortable,relaxed and friendly. Baseline mental status.Intact cognition.Stable. Mr Rooney is requesting script for valium. Denied.No indication for further posychiatric intervention.
--- NOTE | 2017-08-07 16:35 | PN ---
BHS COWS - Scale Resting Pulse: 0= ME 80 or Below Sweatin= Chills/Flushing Restless Observation: 1= Difficult to Sit Still Pupil Size: 0= Normal to Room Light Bone or Joint Aches: 2= Severe Diffuse Aches Runny Nose/ Eye Tearin= Runny Nose/Eyes GI Upset > 30mins: 1= Stomach Cramp Tremor Observation of Outstretched Hands: 0= None Yawning Observation: 1= 1-2x During Session Anxiety or Irritability: 2=Irritable/Anxious Goose Flesh Skin: 3=Piloerection COWS Score: 13 BHS Progress Note (SOAP) Subjective: Constipation, Body Aches, Sweating, Anxious. Objective: PT. A & O X 3, OBSERVED AMBULATING ON UNIT. NO ACUTE DISTRESS. 08/07/17 16:34 Vital Signs Temperature 96.4 F L 08/07/17 13:25 Pulse Rate 67 08/07/17 13:25 Respiratory Rate 18 08/07/17 13:25 Blood Pressure 112/60 08/07/17 13:25 O2 Sat by Pulse Oximetry (%) Laboratory Tests 08/05/17 08/05/17 08/05/17 15:00 15:00 15:00 WBC 5.6 RBC 4.90 Hgb 14.9 Hct 43.7 MCV 89.3 MCH 30.5 MCHC 34.2 RDW 13.2 Plt Count 241 MPV 7.9 Sodium 140 Potassium 4.7 Chloride 103 Carbon Dioxide 30 Anion Gap 7 L BUN 18 Creatinine 0.9 D Creat Clearance w eGFR > 60 Random Glucose 93 Calcium 8.9 Total Bilirubin 0.5 D AST 19 ALT 31 Alkaline Phosphatase 110 Total Protein 7.6 Albumin 4.3 Urine Color Urine Appearance Urine pH Ur Specific [place] Urine Protein Urine Glucose (UA) Urine Ketones Urine Blood Urine Nitrite Urine Bilirubin Urine Urobilinogen Ur Leukocyte Esterase RPR Titer Nonreactive 08/05/17 16:19 WBC RBC Hgb Hct MCV MCH MCHC RDW Plt Count MPV Sodium Potassium Chloride Carbon Dioxide Anion Gap BUN Creatinine Creat Clearance w eGFR Random Glucose Calcium Total Bilirubin AST ALT Alkaline Phosphatase Total Protein Albumin Urine Color Ltyellow Urine Appearance Clear Urine pH 6.0 Ur Specific [place] 1.016 Urine Protein Negative Urine Glucose (UA) Negative Urine Ketones Negative Urine Blood Negative Urine Nitrite Negative Urine Bilirubin Negative Urine Urobilinogen Negative Ur Leukocyte Esterase Negative RPR Titer LABS NOTED. Assessment: 08/07/17 16:34 WITHDRAWAL SYMPTOMS. Plan: CONTINUE DETOX.
[2017-08-07] MEDS: THIAMINE HCL 100 MG TABLET (FP) PO SCH (22:18)
[2017-08-07] MEDS: ZOLPIDEM TARTRATE 10 MG TABLET (PARK CARE ONLY) PO PRN (22:19)
[2017-08-08] MEDS: CYCLOBENZAPRINE HCL 10 MG TABLET (FP) PO SCH ×3 (05:48→22:17)
[2017-08-08] MEDS: diazePAM 5 MG TABLET PO PRN ×4 (05:48→14:11)
[2017-08-08] MEDS: hydrOXYzine PAMOATE 50 MG CAPSULE (FP) PO PRN ×4 (08:58→22:17)
[2017-08-08] MEDS: NICOTINE POLACRILEX 2 MG GUM BUC PRN ×7 (08:58→22:18)
[2017-08-08] MEDS ORDERED: METHADONE HCL 10 MG TABLET (FOR DETOX USE ONLY) PO ONE (10:00)
[2017-08-08] MEDS ORDERED: METHADONE HCL 5 MG TABLET (FOR DETOX USE ONLY) PO ONE (10:00)
[2017-08-08] MEDS: cloNIDine HCL 0.1 MG TABLET PO SCH ×2 (10:10→22:16)
[2017-08-08] MEDS: PRENATAL VITAMINS W/ FOLIC ACID TABLET (FP) PO SCH (10:12)
[2017-08-08] MEDS: NICOTINE 14 MG/24 HOURS TOPICAL PATCH TD SCH (10:12)
[2017-08-08] MEDS: guaiFENesin/D-METHORPHAN HB 10 ML UNIT-DOSE CUPS PO PRN ×2 (10:40→17:16)
--- NOTE | 2017-08-08 15:18 | PN ---
BHS Progress Note (SOAP) Subjective: Watery eyes, sweating, anxious, agitated, anxious Objective: 08/08/17 15:15 Last Vital Signs Temp Pulse Resp BP Pulse Ox 98.2 F 72 18 113/63 08/08/17 14:33 08/08/17 14:33 08/08/17 14:33 08/08/17 14:33 Laboratory Tests 08/05/17 08/05/17 08/05/17 15:00 15:00 15:00 WBC 5.6 RBC 4.90 Hgb 14.9 Hct 43.7 MCV 89.3 MCH 30.5 MCHC 34.2 RDW 13.2 Plt Count 241 MPV 7.9 Sodium 140 Potassium 4.7 Chloride 103 Carbon Dioxide 30 Anion Gap 7 L BUN 18 Creatinine 0.9 D Creat Clearance w eGFR > 60 Random Glucose 93 Calcium 8.9 Total Bilirubin 0.5 D AST 19 ALT 31 Alkaline Phosphatase 110 Total Protein 7.6 Albumin 4.3 Urine Color Urine Appearance Urine pH Ur Specific [place] Urine Protein Urine Glucose (UA) Urine Ketones Urine Blood Urine Nitrite Urine Bilirubin Urine Urobilinogen Ur Leukocyte Esterase RPR Titer Nonreactive 08/05/17 16:19 WBC RBC Hgb Hct MCV MCH MCHC RDW Plt Count MPV Sodium Potassium Chloride Carbon Dioxide Anion Gap BUN Creatinine Creat Clearance w eGFR Random Glucose Calcium Total Bilirubin AST ALT Alkaline Phosphatase Total Protein Albumin Urine Color Ltyellow Urine Appearance Clear Urine pH 6.0 Ur Specific [place] 1.016 Urine Protein Negative Urine Glucose (UA) Negative Urine Ketones Negative Urine Blood Negative Urine Nitrite Negative Urine Bilirubin Negative Urine Urobilinogen Negative Ur Leukocyte Esterase Negative RPR Titer Labs noted Assessment: 08/08/17 15:17 Withdrawal symptoms Plan: Continue detox
[2017-08-08] MEDS: THIAMINE HCL 100 MG TABLET (FP) PO SCH (22:16)
[2017-08-09] MEDS: hydrOXYzine PAMOATE 50 MG CAPSULE (FP) PO PRN (05:43)
[2017-08-09] MEDS: CYCLOBENZAPRINE HCL 10 MG TABLET (FP) PO SCH (05:43)
[2017-08-09] MEDS ORDERED: METHADONE HCL 5 MG TABLET (FOR DETOX USE ONLY) PO ONE (06:00)
[2017-08-09] MEDS: NICOTINE POLACRILEX 2 MG GUM BUC PRN (08:59)
[2017-08-09 09:31] VITALS: BP 118/70; PULSE 77; TEMP 97.4
[2017-08-09] MEDS ORDERED: METHADONE HCL 10 MG TABLET (FOR DETOX USE ONLY) PO ONE (10:00)
--- NOTE | 2017-08-09 12:53 | DS ---
[facility] Detox Discharge Summary Admission Date: 08/05/17 Discharge Date: 08/09/17 - History Present History: Cannabis Dependence, Opioid Dependence Additional Comments: PATIENT GOING HOME. PATIENT ADVISED TO CONSIDER LOCAL 12-STEP / NA OUTPATIENT SUPPORT GROUP MEETINGS FOR AFTERCARE. PATIENT ALSO ADVISED TO [facility] TO [facility] FOR MEDICAL AND PSYCHOSOCIAL EVALUATION AFTER DISCHARGE FROM DETOX UNIT. PATIENT WAS DISCHARGED FROM DETOX UNIT IN STABLE MEDICAL CONDITION. Pertinent Past History: Nicotine Dependence, Depression, History of Dislocation of Right Shoulder. - Physical Exam Results Vital Signs: Vital Signs Temperature 97.4 F L 08/09/17 09:30 Pulse Rate 77 08/09/17 09:30 Respiratory Rate 18 08/09/17 09:30 Blood Pressure 118/70 08/09/17 09:30 O2 Sat by Pulse Oximetry (%) Pertinent Admission Physical Exam Findings: WITHDRAWAL SYMPTOMS. Laboratory Tests 08/05/17 08/05/17 08/05/17 15:00 15:00 15:00 WBC 5.6 RBC 4.90 Hgb 14.9 Hct 43.7 MCV 89.3 MCH 30.5 MCHC 34.2 RDW 13.2 Plt Count 241 MPV 7.9 Sodium 140 Potassium 4.7 Chloride 103 Carbon Dioxide 30 Anion Gap 7 L BUN 18 Creatinine 0.9 D Creat Clearance w eGFR > 60 Random Glucose 93 Calcium 8.9 Total Bilirubin 0.5 D AST 19 ALT 31 Alkaline Phosphatase 110 Total Protein 7.6 Albumin 4.3 Urine Color Urine Appearance Urine pH Ur Specific [place] Urine Protein Urine Glucose (UA) Urine Ketones Urine Blood Urine Nitrite Urine Bilirubin Urine Urobilinogen Ur Leukocyte Esterase RPR Titer Nonreactive 08/05/17 16:19 WBC RBC Hgb Hct MCV MCH MCHC RDW Plt Count MPV Sodium Potassium Chloride Carbon Dioxide Anion Gap BUN Creatinine Creat Clearance w eGFR Random Glucose Calcium Total Bilirubin AST ALT Alkaline Phosphatase Total Protein Albumin Urine Color Ltyellow Urine Appearance Clear Urine pH 6.0 Ur Specific [place] 1.016 Urine Protein Negative Urine Glucose (UA) Negative Urine Ketones Negative Urine Blood Negative Urine Nitrite Negative Urine Bilirubin Negative Urine Urobilinogen Negative Ur Leukocyte Esterase Negative RPR Titer LABS NOTED. - Treatment Hospital Course: Detox Protocol Followed, Detoxed Safely, Responded well, Discharged Condition Good Patient has Accepted a Rehab Referral to: PT GOING HOME, ADVISED TO CONSIDER LOCAL 12-STEP/NA SUPPORT GROUPS. - Medication Discharge Medications: Ambulatory Orders NK [No Known Home Medication] 08/05/17 - Diagnosis (1) Cannabis dependence, uncomplicated Status: Chronic (2) Opioid dependence with withdrawal Status: Acute (3) History of dislocation of shoulder Status: Chronic (4) Nicotine dependence Status: Chronic Qualifiers: Nicotine product type: cigarettes Substance use status: uncomplicated Qualified Code(s): F17.210 - Nicotine dependence, cigarettes, uncomplicated (5) Insomnia Status: Acute - AMA Did Patient Leave Against Medical Advice: No
[2017-08-10] MEDS ORDERED: METHADONE HCL 5 MG TABLET (FOR DETOX USE ONLY) PO ONE (06:00)
== END 2017-08-09 09:06 | disposition home or self-care (01) | DRG 773 ==
LOC: YASAS 09:01 → Y3N 15:18
PROVIDERS: ADMIT Internal Medicine; ATTEND Internal Medicine
PROC: HZ2ZZZZ Detoxification Services for Substance Abuse Treatment (ICD-10-PCS; principal; 2017-08-05)
DX: F11.23 Opioid dependence with withdrawal (principal); F12.20 Cannabis dependence, uncomplicated; F17.210 Nicotine dependence, cigarettes, uncomplicated; F41.9 Anxiety disorder, unspecified; G47.00 Insomnia, unspecified; Z91.5 Personal history of self-harm
CPT/HCPCS: 36415; 80053; 81003; 85027; 86593; 93005; 93010; J0735

== ENCOUNTER 2021-04-29 16:47 | Inpatient (IN) | payer OTHER ==
[2021-04-29 17:39] VITALS: BMI 28.8
[2021-04-29] MEDS ORDERED: IBUPROFEN 400 MG TABLET (FP) PO PRN (21:15)
[2021-04-29] MEDS ORDERED: MAG HYDROX/AL HYDROX/SIMETH 30 ML UNIT-DOSE CUP PO PRN (21:15)
[2021-04-29] MEDS ORDERED: BISMUTH SUBSALICYLATE 524 MG/30 ML PO PRN (21:15)
[2021-04-29] MEDS ORDERED: MENTHOL/PHENOL 1 EACH UD MM PRN (21:15)
[2021-04-29] MEDS ORDERED: MAGNESIUM HYDROX 2400MG/30ML ORAL SUSPENSION 30 ML CUP PO PRN (21:15)
[2021-04-29] MEDS ORDERED: ACETAMINOPHEN 325 MG TABLET (FP) PO PRN ×2 (21:15)
[2021-04-29] MEDS ORDERED: MAGNESIUM CITRATE 300 ML BOTTLE PO PRN (21:15)
[2021-04-29] MEDS ORDERED: NICOTINE 10 MG CARTRIDGE (INHALER) IH PRN (21:15)
[2021-04-29] MEDS ORDERED: ONDANSETRON *ODT* 4 MG TABLET SL PRN (21:15)
[2021-04-30] MEDS: MELATONIN 5 MG TABLETS PO SCH ×2 (01:11→22:16)
[2021-04-30] MEDS: THIAMINE HCL 100 MG TABLET (FP) PO SCH ×2 (01:11→22:14)
[2021-04-30] MEDS ORDERED: diazePAM 5 MG TABLET ONE (02:10)
[2021-04-30] MEDS: diazePAM 5 MG TABLET PO SCH ×5 (02:11→22:16)
[2021-04-30] MEDS: PRENATAL VITAMINS W/ FOLIC ACID TABLET (FP) PO SCH (10:50)
[2021-04-30] MEDS: METHOCARBAMOL 500 MG TABLET PO PRN (10:50)
[2021-04-30] MEDS: NICOTINE 14 MG/24 HOURS TOPICAL PATCH TD SCH (10:54)
[2021-04-30 10:58] LABS: HEMATOCRIT 42.4 % (35.4-49); HEMOGLOBIN 14.4 GM/dL (11.7-16.9); MCH 30.6 pg (25.7-33.7); MEAN PLT VOLUME 7.3 fl (7.5-11.1); PLATELET COUNT 249 10^3/uL (134-434); RBC 4.71 M/mm3 (4.00-5.60); RDW 13.4 % (11.9-15.9); WHITE BLOOD COUNT 7.3 K/mm3 (4.0-10.0)
[2021-04-30 11:05] LABS: ALBUMIN 3.8 g/dl (3.4-5.0); BLOOD UREA NITROGEN 19.1 mg/dL (7-18); CALCIUM 9.2 mg/dL (8.5-10.1)
[2021-04-30 11:08] LABS: BILIRUBIN,TOTAL 0.7 mg/dL (0.2-1); TOT PROT 6.9 g/dl (6.4-8.2)
[2021-04-30 11:09] LABS: CREATININE 0.8 mg/dL (0.55-1.3)
[2021-04-30] MEDS: cloNIDine HCL 0.1 MG TABLET PO PRN (17:37)
[2021-04-30] MEDS: diazePAM 5 MG TABLET PO PRN (22:15)
[2021-05-01] MEDS: diazePAM 5 MG TABLET PO SCH ×3 (05:23→22:18)
[2021-05-01] MEDS ORDERED: TRIMETHOBENZAMIDE HCL 200MG/2ML INJ IM PRN (09:33)
[2021-05-01] MEDS: PRENATAL VITAMINS W/ FOLIC ACID TABLET (FP) PO SCH (10:04)
[2021-05-01] MEDS: NICOTINE 14 MG/24 HOURS TOPICAL PATCH TD SCH (10:04)
[2021-05-01] MEDS: cloNIDine HCL 0.1 MG TABLET PO PRN (10:05)
[2021-05-01] MEDS: METHOCARBAMOL 500 MG TABLET PO PRN (10:05)
[2021-05-01 14:24] LABS: HIV INTERPRETATION NEGATIVE (NEGATIVE)
[2021-05-01] MEDS: diazePAM 5 MG TABLET PO PRN (17:59)
[2021-05-01] MEDS: THIAMINE HCL 100 MG TABLET (FP) PO SCH (22:19)
[2021-05-01] MEDS: MELATONIN 5 MG TABLETS PO SCH (22:19)
[2021-05-02] MEDS: diazePAM 5 MG TABLET PO SCH ×2 (05:07→17:25)
[2021-05-02] MEDS: PRENATAL VITAMINS W/ FOLIC ACID TABLET (FP) PO SCH (10:10)
[2021-05-02] MEDS: NICOTINE 14 MG/24 HOURS TOPICAL PATCH TD SCH (10:11)
[2021-05-02] MEDS: cloNIDine HCL 0.1 MG TABLET PO PRN ×2 (10:12→21:41)
[2021-05-02] MEDS: diazePAM 5 MG TABLET PO PRN (10:13)
[2021-05-02] MEDS: THIAMINE HCL 100 MG TABLET (FP) PO SCH (21:41)
[2021-05-02] MEDS: METHOCARBAMOL 500 MG TABLET PO PRN (21:41)
[2021-05-02] MEDS: MELATONIN 5 MG TABLETS PO SCH (21:42)
[2021-05-03] MEDS ORDERED: diazePAM 5 MG TABLET PO ONE (06:00)
[2021-05-03 09:05] VITALS: BP 122/85; PULSE 75; TEMP 97.7
[2021-05-03] MEDS: NICOTINE 14 MG/24 HOURS TOPICAL PATCH TD SCH (10:33)
[2021-05-03] MEDS: PRENATAL VITAMINS W/ FOLIC ACID TABLET (FP) PO SCH (10:33)
== END 2021-05-03 09:58 | disposition home or self-care (01) | DRG 773 ==
LOC: YASAS 16:47 → Y6N 04-30 01:10
PROVIDERS: ADMIT Allergy & Immunology; ATTEND Allergy & Immunology
PROC: HZ2ZZZZ Detoxification Services for Substance Abuse Treatment (ICD-10-PCS; principal; 2021-04-30)
DX: F13.230 Sedative, hypnotic or anxiolytic dependence with withdrawal, uncomplicated (principal); F11.20 Opioid dependence, uncomplicated; F10.20 Alcohol dependence, uncomplicated; F14.20 Cocaine dependence, uncomplicated; F12.20 Cannabis dependence, uncomplicated; F17.210 Nicotine dependence, cigarettes, uncomplicated; F19.280 Other psychoactive substance dependence with psychoactive substance-induced anxiety disorder; F41.9 Anxiety disorder, unspecified; F32.A Depression, unspecified; G47.00 Insomnia, unspecified
CPT/HCPCS: 36415; 80053; 82962; 85027; 86780; 87389; 93005; 93010; C9803; J0735; U0003; U0005